=== PATIENT | female | born 1965 | race Caucasian/White ===

== ENCOUNTER → 2016-04-15 | Outpatient (CLI) | payer OTHER ==
[~2016-04-15] MED LIST: /CELE20CA OR; /CELE20CA PO; /QUET25TA OR; CALCCHW12 PO; CALCTAB22 PO; COLA100C PO; CRANCAP11 PO; GLUC500T3 PO; LYRI100C10 PO; MIRA3350 PO; MOBI15TA PO; MYRB50TA PO; NEUR100C OR; NIFE30TA7 PO; PLAQ200T PO; PROZ10CA7 PO; TERB250T64 PO; TRAM50TA2 OR; TRAZ50TA OR; TRAZ50TA4 PO; VITAD1000T PO; [UNRECOGNIZED DRUG - REMARK]; combination cream TOP; melatonin PO; tylenol arthritis PO
--- NOTE | 2016-04-16 00:57 | ECWPNPC ---
PATIENT NAME: HAO MARROQUIN : 1965 GENDER: FEMALE VISIT DATE: 04/15/2016 DISCHARGE DATE: 04/15/16 0945 VISIT LOCKED DATE TIME: PHYSICIAN: YANG HILL RESOURCE: YANG HILL REASON FOR APPOINTMENT 1. FOLLOWUP HISTORY OF PRESENT ILLNESS HISTORY OF PRESENT ILLNESS: PAIN THE PATIENT DESCRIBES THE PAIN... FALL RISK SCREENING: SCREENING :NO FALLS IN THE PAST YEAR TODAY'S VISIT: NOTES: RATES PAIN 4/10. DESCRIBES PAIN CONSTANT, BURNING, TENDER, THROBBING, SORE. WORST AREA OF PAIN IN LEFT LOW BACK AND BUTTUCK REGION. JOINTS INCLUDING HANDS HAVE ALSO BEEN PROBLEMATIC. USES MULTIPLE MODALITIES AND ALTERNATES THEM TO KEEP PAIN MANAGED. . CURRENT MEDICATIONS TAKING CELEBREX 200 MG CAPSULE 1 CAPSULE ORALLY ONCE A DAY TAKING PLAQUENIL 300 MG TABLET 1 TABLET WITH FOOD OR MILK ORALLY ONCE A DAY TAKING VITAMIN D 2000 UNIT TABLET 1TAB ORALLY DAILY TAKING CALCIUM 500 MG TABLET 1 TAB ORALLY DAILY TAKING CATHETERS 14 F KIT 1 CATHETER 6 TIMES A DAY TAKING CRANBERRY 300 MG CAPSULE 1 CAP(S) ORALLY BID TAKING NIFEDIPINE 30 MG CAPSULE 1 CAPSULE ORALLY ONCE A DAY TAKING PROZAC 10 MG CAPSULE 1 CAP ORALLY BEFORE BEDTIME TAKING CYANOCOBALAMIN 500 MCG TABLET 1 TABLET ORALLY ONCE A DAY TAKING CRESTOR 5 MG TABLET 1 TABLET ORALLY ONCE A DAY TAKING MIRALAX 1500 POWDER DIRECTED ORALLY TAKE 17 GM DAILY IN 8 OZ FLUID TAKING COLACE 100 MG CAPSULE 2 CAPSULE NEEDED ORALLY TWICE A DAY TAKING VOLTAREN 1 % GEL DIRECTED TRANSDERMAL FOUR TIMES DAILY APPLY TO SACRUM PRN PAIN TAKING TRAMADOL HCL 50 MG TABLET 2 TABLETS ORALLY MDD=8 EVERY 4 HOURS NEEDED PRN PAIN MDD=8CHRONIC PAIN CODE D TAKING MYRBETRIQ 50MG TABLET EXTENDED RELEASE 24 HOUR TAKE 1 TABLET ONCE A DAY TAKING LYRICA 150 MG CAPSULE 1 CAPSULE ORALLY TWICE A DAY MDD=2 CODE D CHRONIC PAIN MEDICATION LIST REVIEWED AND RECONCILED WITH THE PATIENT PAST MEDICAL HISTORY SLEEP APNEA SJOGREN'S SYNDROME HISTORY OF CONCUSSION CARPAL TUNNEL SYNDROME CHRONIC PAIN MODERATE CERVICAL DYSPLASIA ARTHRITIS HISTORY OF TBI PTSD 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 NEW PATIENT PAIN DIARY TODAY'S VISITNOTES FROM 0-10, WHAT LEVEL IS YOUR PAIN TODAY?0 PAIN CLINIC PFS, CLERGY, PUBLIC HEALTH REFERRALS PFS REFERRAL NEEDED?NO CLERGY REFERRAL NEEDED?NO PUBLIC HEALTH REFERRAL NEEDED?NO WAS THE PROVIDER NOTIFIED OF ANY PERTINENT INFO?NO PFS REFERRAL NEEDED?NO CLERGY REFERRAL NEEDED?NO PUBLIC HEALTH REFERRAL NEEDED?NO WAS THE PROVIDER NOTIFIED OF ANY PERTINENT INFO?NO REVIEW OF SYSTEMS CONSTITUTIONAL: ANY CHANGE IN YOUR MEDICAL CONDITION? NO . CHILLS NO . FEVER NO . INFECTION: DO YOU HAVE NEW INFECTIONS? NO . DO YOU HAVE HISTORY OF MRSA? NO . MUSCULOSKELETAL: ANY NEW PATTERNS OF PAIN OR NUMBNESS? NO . GASTROENTEROLOGY: ANY NEW CHANGE IN BOWEL CONTROL? NO . GENITOURINARY: ANY NEW CHANGE IN BLADDER CONTROL? NO . IS THERE A CHANCE YOU COULD BE ? NO . HEMATOLOGY/LYMPH: DO YOU TAKE ANY BLOOD THINNERS? (FOR EXAMPLE- COUMADIN, PLAVIX, AGGRENOX, PLATEL, PRADAXA, OR XARELTO) NO . WHEN WAS YOUR LAST DOSE? DATE: TIME: . NEUROLOGY: HAVE YOU FALLEN IN THE PAST 6 MONTHS? NO . ANY NEW EXTREMITY NUMBNESS OR WEAKNESS? NO . CARDIOLOGY: DO YOU HAVE A PACEMAKER OR DEFIBRILLATOR? NO . RESPIRATORY: HAVE YOU BEEN SICK IN THE PAST WEEK? NO . FEVER NO . FLU LIKE SYMPTOMS? NO . COUGH NO . INTEGUMENTARY: DO YOU HAVE ANY RASHES OR OPEN SORES? NO . ALLERGIC/IMMUNO: ARE YOU ALLERGIC TO SHELLFISH OR IV DYE? NO . ANY NEW ALLERGIES? NO . PSYCHIATRIC: DO YOU HAVE THOUGHTS OF HURTING YOURSELF OR SOMEONE ELSE? NO . ARE YOU ABUSED, NEGLECTED, OR IN AN UNSAFE ENVIRONMENT? NO . ENDOCRINOLOGY: ARE YOU DIABETIC? NO . OTHER: DO YOU NEED ANY PRESCRIPTIONS? NOT SURE . IF YES, PLEASE LIST: ____ . ANY NEW PROBLEMS WITH YOUR MEDICATIONS? NO . WHEN DID YOU LAST EAT? ____ . WHEN DID YOU LAST DRINK? ____ . WHAT DID YOU LAST DRINK? ____ . NAME OF PERSON DRIVING YOU HOME? ____ . DO YOU HAVE ANY OTHER QUESTIONS OR CONCERNS NO . REVIEWED BY: PROVIDER: YANG MAZARIEGOS . VITAL SIGNS WT 136.2 LBS, HT 66", BMI 21.98 INDEX, BP 113/68 MM HG, HR 92 /MIN, RR 16 /MIN, TEMP 98.4 F, OXYGEN SAT % 96%, NA INITIALS SC08:47, REVIEWED BY: AD. EXAMINATION GENERAL EXAMINATION: PSYCHALERT , ORIENTED X 3 , APPROPRIATE MOOD AND AFFECT . LUNGS:CLEAR TO AUSCULTATION BILATERALLY. HEART:HEART RATE REGULAR, NO MURMURS, CLICK OR RUBS. MUSCULOSKELETAL:TENDER OVER SACRUM AND COCCYX. STANDS THROUGHOUT ENCOUNTER. POSTURE STIFF, UPRIGHT. GAIT NONANTALGIC.. JOINTS:ERYTHEMA,SWELLING NOTES OVER MIP, PIP AND DIP JOINTS 3RD FINGER LEFT HAND. 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 PROCEDURE CODES FA211 ESTABILISHED PATIENT [facility] CHARGE FOLLOW UP 6 WEEKS. ELECTRONICALLY SIGNED BY GADIEL JIMENEZ ON 04/15/2016 AT 10:11 AM EST DISCLAIMER : THIS IS A VISIT SUMMARY EXTRACTED FROM THE [employer] CHART. IT IS NOT A COPY OF THE [employer] PROGRESS NOTE. MTDD
== END ==
LOC: M PAIN 08:40
PROVIDERS: ATTEND Nurse Practitioner Family
DX: Z09 Encounter for follow-up examination after completed treatment for conditions other than malignant neoplasm (principal); G57.00 Lesion of sciatic nerve, unspecified lower limb; M51.26 Other intervertebral disc displacement, lumbar region; M79.1 Myalgia; Z79.891 Long term (current) use of opiate analgesic; Z79.899 Other long term (current) drug therapy; G47.30 Sleep apnea, unspecified; M35.00 Sjogren syndrome, unspecified; Z87.820 Personal history of traumatic brain injury; I73.00 Raynaud's syndrome without gangrene; F43.10 Post-traumatic stress disorder, unspecified; Z91.040 Latex allergy status; Z88.1 Allergy status to other antibiotic agents; Z88.0 Allergy status to penicillin

== ENCOUNTER → 2016-05-16 | Outpatient (CLI) | payer OTHER ==
[2016-05-16 17:20] LABS: MEAN CORPUSCULAR HEMOGLOBIN 31.6 pg (27.0-33.0); MEAN CORPUSCULAR HGB CONC 33.1 g/dl (32.0-36.5); MEAN CORPUSCULAR VOLUME 95.4 fl (80.0-96.0); RED CELL DISTRIBUTION WIDTH 12.1 % (11.5-14.5); WHITE BLOOD COUNT 5.7 K/mm3 (4.0-10.0)
[2016-05-16 17:32] LABS: ANION GAP 4 MEQ/L (8-16); BLOOD UREA NITROGEN 11 MG/DL (7-18); CARBON DIOXIDE LEVEL 33 MEQ/L (21-32); CHLORIDE LEVEL 103 MEQ/L (98-107); GLOMERULAR FILTRATION RATE > 60.0 (>51); GLUCOSE, FASTING 54 MG/DL (70-105); POTASSIUM SERUM 4.3 MEQ/L (3.5-5.1); SODIUM LEVEL 140 MEQ/L (136-145)
== END ==
LOC: M SMT 14:30
PROVIDERS: ATTEND Nurse Practitioner Women's Health
DX: N31.9 Neuromuscular dysfunction of bladder, unspecified (principal)
CPT/HCPCS: 36415; 80048; 85027; G0463

== ENCOUNTER → 2016-06-02 | Outpatient (CLI) | payer OTHER ==
--- NOTE | 2016-06-03 23:54 | ECWPNPC ---
PATIENT NAME: HAO MARROQUIN : 1965 GENDER: FEMALE VISIT DATE: 06/02/2016 DISCHARGE DATE: 06/02/16 1053 VISIT LOCKED DATE TIME: PHYSICIAN: YANG HILL RESOURCE: YANG HILL REASON FOR APPOINTMENT 1. FOLLOW UP HISTORY OF PRESENT ILLNESS HISTORY OF PRESENT ILLNESS: PAIN THE PATIENT DESCRIBES THE PAIN... FALL RISK SCREENING: SCREENING :NO FALLS IN THE PAST YEAR TODAY'S VISIT: NOTES: RATES PAIN TODAY 4/10. DESCRIBES PAIN CONSTANT AND BURNING. IS HAVING A SENSE OF NUMBNESS OVER LEFT HIP AND THIGH. HAS A HARD TIME FINDING A COMFORTABLE POSITION. HAS BEEN USING A TENS AND A OTC CREAM WHICH CAN BE HELPFUL.. CURRENT MEDICATIONS TAKING CELEBREX 200 MG CAPSULE 1 CAPSULE ORALLY ONCE A DAY TAKING PLAQUENIL 300 MG TABLET 1 TABLET WITH FOOD OR MILK ORALLY ONCE A DAY TAKING VITAMIN D 2000 UNIT TABLET 1TAB ORALLY DAILY TAKING CALCIUM 500 MG TABLET 1 TAB ORALLY DAILY TAKING CATHETERS 14 F KIT 1 CATHETER 6 TIMES A DAY TAKING CRANBERRY 300 MG CAPSULE 1 CAP(S) ORALLY BID TAKING NIFEDIPINE 30 MG CAPSULE 1 CAPSULE ORALLY ONCE A DAY TAKING PROZAC 10 MG CAPSULE 1 CAP ORALLY BEFORE BEDTIME TAKING CYANOCOBALAMIN 500 MCG TABLET 1 TABLET ORALLY ONCE A DAY TAKING CRESTOR 5 MG TABLET 1 TABLET ORALLY ONCE A DAY TAKING MIRALAX 1500 POWDER DIRECTED ORALLY TAKE 17 GM DAILY IN 8 OZ FLUID TAKING COLACE 100 MG CAPSULE 2 CAPSULE NEEDED ORALLY TWICE A DAY TAKING VOLTAREN 1 % GEL DIRECTED TRANSDERMAL FOUR TIMES DAILY APPLY TO SACRUM PRN PAIN TAKING TRAMADOL HCL 50 MG TABLET 2 TABLETS ORALLY MDD=8 EVERY 4 HOURS NEEDED PRN PAIN MDD=8CHRONIC PAIN CODE D TAKING LYRICA 150 MG CAPSULE 1 CAPSULE ORALLY TWICE A DAY MDD=2 CODE D CHRONIC PAIN TAKING MYRBETRIQ 50MG TABLET EXTENDED RELEASE 24 HOUR TAKE 1 TABLET ONCE A DAY DAILY MEDICATION LIST REVIEWED AND RECONCILED WITH THE PATIENT PAST MEDICAL HISTORY SLEEP APNEA SJOGREN'S SYNDROME HISTORY OF CONCUSSION CARPAL TUNNEL SYNDROME CHRONIC PAIN MODERATE CERVICAL DYSPLASIA ARTHRITIS HISTORY OF TBI PTSD 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 NEW PATIENT PAIN DIARY TODAY'S VISITNOTES FROM 0-10, WHAT LEVEL IS YOUR PAIN TODAY?0 PAIN CLINIC PFS, CLERGY, PUBLIC HEALTH REFERRALS PFS REFERRAL NEEDED?NO CLERGY REFERRAL NEEDED?NO PUBLIC HEALTH REFERRAL NEEDED?NO WAS THE PROVIDER NOTIFIED OF ANY PERTINENT INFO?NO PFS REFERRAL NEEDED?NO CLERGY REFERRAL NEEDED?NO PUBLIC HEALTH REFERRAL NEEDED?NO WAS THE PROVIDER NOTIFIED OF ANY PERTINENT INFO?NO REVIEW OF SYSTEMS CONSTITUTIONAL: ANY CHANGE IN YOUR MEDICAL CONDITION? NO . CHILLS NO . FEVER NO . INFECTION: DO YOU HAVE NEW INFECTIONS? NO . DO YOU HAVE HISTORY OF MRSA? NO . MUSCULOSKELETAL: ANY NEW PATTERNS OF PAIN OR NUMBNESS? NO . GASTROENTEROLOGY: ANY NEW CHANGE IN BOWEL CONTROL? NO . GENITOURINARY: ANY NEW CHANGE IN BLADDER CONTROL? NO . IS THERE A CHANCE YOU COULD BE ? NO . HEMATOLOGY/LYMPH: DO YOU TAKE ANY BLOOD THINNERS? (FOR EXAMPLE- COUMADIN, PLAVIX, AGGRENOX, PLATEL, PRADAXA, OR XARELTO) NO . WHEN WAS YOUR LAST DOSE? DATE: TIME: . NEUROLOGY: HAVE YOU FALLEN IN THE PAST 6 MONTHS? NO . ANY NEW EXTREMITY NUMBNESS OR WEAKNESS? NO . CARDIOLOGY: DO YOU HAVE A PACEMAKER OR DEFIBRILLATOR? NO . RESPIRATORY: HAVE YOU BEEN SICK IN THE PAST WEEK? NO . FEVER NO . FLU LIKE SYMPTOMS? NO . COUGH NO . INTEGUMENTARY: DO YOU HAVE ANY RASHES OR OPEN SORES? NO . ALLERGIC/IMMUNO: ARE YOU ALLERGIC TO SHELLFISH OR IV DYE? NO . ANY NEW ALLERGIES? NO . PSYCHIATRIC: DO YOU HAVE THOUGHTS OF HURTING YOURSELF OR SOMEONE ELSE? NO . ARE YOU ABUSED, NEGLECTED, OR IN AN UNSAFE ENVIRONMENT? NO . ENDOCRINOLOGY: ARE YOU DIABETIC? NO . OTHER: DO YOU NEED ANY PRESCRIPTIONS? NO . IF YES, PLEASE LIST: ____ . ANY NEW PROBLEMS WITH YOUR MEDICATIONS? NO . WHEN DID YOU LAST EAT? ____ . WHEN DID YOU LAST DRINK? ____ . WHAT DID YOU LAST DRINK? ____ . NAME OF PERSON DRIVING YOU HOME? ____ . DO YOU HAVE ANY OTHER QUESTIONS OR CONCERNS NO . REVIEWED BY: PROVIDER: YANG MAZARIEGOS . VITAL SIGNS WT 141.8 LBS, HT 66", BMI 22.88 INDEX, BP 96/67 MM HG, HR 78 /MIN, RR 16 /MIN, TEMP 98.6 F, OXYGEN SAT % 98%, NA INITIALS SC 10:06, REVIEWED BY: MLF. EXAMINATION GENERAL EXAMINATION: PSYCHALERT , ORIENTED X 3 , APPROPRIATE MOOD AND AFFECT . LUNGS:CLEAR TO AUSCULTATION BILATERALLY. HEART:HEART RATE REGULAR, NO MURMURS, CLICK OR RUBS. MUSCULOSKELETAL:TENDER OVER SACRUM AND COCCYX AND LEFT PIRIFORMIS. STANDS THROUGHOUT ENCOUNTER. POSTURE STIFF, UPRIGHT. GAIT NONANTALGIC.. 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 CONTINUE TENS, EXERCISES AND STRETCHES, AND OTC CREAMS CALL IF INJECTION TREATMENT NEEDED. PROCEDURE CODES FA211 ESTABILISHED PATIENT [facility] CHARGE DISPOSITION & COMMUNICATION FOLLOW UP 6 WEEKS ELECTRONICALLY SIGNED BY GADIEL JIMENEZ ON 06/03/2016 AT 01:00 PM EDT DISCLAIMER : THIS IS A VISIT SUMMARY EXTRACTED FROM THE [employer] CHART. IT IS NOT A COPY OF THE [employer] PROGRESS NOTE. DEISY
== END ==
LOC: M PAIN 10:20
PROVIDERS: ATTEND Nurse Practitioner Family
DX: Z09 Encounter for follow-up examination after completed treatment for conditions other than malignant neoplasm (principal); G89.29 Other chronic pain; M79.1 Myalgia; G57.00 Lesion of sciatic nerve, unspecified lower limb; M51.26 Other intervertebral disc displacement, lumbar region; G47.00 Insomnia, unspecified; G56.00 Carpal tunnel syndrome, unspecified upper limb; I73.00 Raynaud's syndrome without gangrene; M35.00 Sjogren syndrome, unspecified; F43.10 Post-traumatic stress disorder, unspecified; M19.90 Unspecified osteoarthritis, unspecified site; N31.9 Neuromuscular dysfunction of bladder, unspecified; Z79.899 Other long term (current) drug therapy; Z91.040 Latex allergy status; Z88.0 Allergy status to penicillin; Z88.1 Allergy status to other antibiotic agents

== ENCOUNTER → 2016-07-14 | Outpatient (CLI) | payer OTHER ==
[~2016-07-14] MED LIST changes: -COLA100C PO; +COLA100C3 PO
--- NOTE | 2016-08-07 02:26 | ECWPNPC ---
PATIENT NAME: HAO MARROQUIN : 1965 GENDER: FEMALE VISIT DATE: 07/14/2016 DISCHARGE DATE: 07/14/16939 VISIT LOCKED DATE TIME: PHYSICIAN: YANG HILL RESOURCE: YANG HILL REASON FOR APPOINTMENT 1. FOLLOWUP HISTORY OF PRESENT ILLNESS HISTORY OF PRESENT ILLNESS: PAIN THE PATIENT DESCRIBES THE PAIN... FALL RISK SCREENING: SCREENING :NO FALLS IN THE PAST YEAR TODAY'S VISIT: NOTES: RATES PAIN LEVEL TODAY 4/10. DESCRIBES PAIN CONSTANT, ACHING, BURNING TENDER, THROBBING AND SORE. PAIN IS CENTERED OVER LOW BACK AND LEFT SACRUM, SHOULDERS AND JOINTS. REPORTS PAIN MEDS ARE EFFECTIVE BUT IS CONCERNED WITH THE FUTURE IF THEY CEASE TO BE EFFECTIVE.. CURRENT MEDICATIONS TAKING CELEBREX 200 MG CAPSULE 1 CAPSULE ORALLY ONCE A DAY TAKING PLAQUENIL 300 MG TABLET 1 TABLET WITH FOOD OR MILK ORALLY ONCE A DAY TAKING VITAMIN D 2000 UNIT TABLET 1TAB ORALLY DAILY TAKING CALCIUM 500 MG TABLET 1 TAB ORALLY DAILY TAKING CATHETERS 14 F KIT 1 CATHETER 6 TIMES A DAY TAKING CRANBERRY 300 MG CAPSULE 1 CAP(S) ORALLY BID TAKING NIFEDIPINE 30 MG CAPSULE 1 CAPSULE ORALLY ONCE A DAY TAKING PROZAC 10 MG CAPSULE 1 CAP ORALLY BEFORE BEDTIME TAKING CYANOCOBALAMIN 500 MCG TABLET 1 TABLET ORALLY ONCE A DAY TAKING CRESTOR 5 MG TABLET 1 TABLET ORALLY ONCE A DAY TAKING MIRALAX 1500 POWDER DIRECTED ORALLY TAKE 17 GM DAILY IN 8 OZ FLUID TAKING COLACE 100 MG CAPSULE 2 CAPSULE NEEDED ORALLY TWICE A DAY TAKING VOLTAREN 1 % GEL DIRECTED TRANSDERMAL FOUR TIMES DAILY APPLY TO SACRUM PRN PAIN TAKING TRAMADOL HCL 50 MG TABLET 2 TABLETS ORALLY MDD=8 EVERY 4 HOURS NEEDED PRN PAIN MDD=8CHRONIC PAIN CODE D TAKING LYRICA 150 MG CAPSULE 1 CAPSULE ORALLY TWICE A DAY MDD=2 CODE D CHRONIC PAIN TAKING MYRBETRIQ 50MG TABLET EXTENDED RELEASE 24 HOUR TAKE 1 TABLET ONCE A DAY DAILY MEDICATION LIST REVIEWED AND RECONCILED WITH THE PATIENT PAST MEDICAL HISTORY SLEEP APNEA SJOGREN'S SYNDROME HISTORY OF CONCUSSION CARPAL TUNNEL SYNDROME CHRONIC PAIN MODERATE CERVICAL DYSPLASIA ARTHRITIS HISTORY OF TBI PTSD 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 NO . CHILLS NO . FEVER NO . INFECTION: DO YOU HAVE NEW INFECTIONS? NO . DO YOU HAVE HISTORY OF MRSA? NO . MUSCULOSKELETAL: ANY NEW PATTERNS OF PAIN OR NUMBNESS? NO . GASTROENTEROLOGY: ANY NEW CHANGE IN BOWEL CONTROL? NO . GENITOURINARY: ANY NEW CHANGE IN BLADDER CONTROL? NO . IS THERE A CHANCE YOU COULD BE ? NO . HEMATOLOGY/LYMPH: DO YOU TAKE ANY BLOOD THINNERS? (FOR EXAMPLE- COUMADIN, PLAVIX, AGGRENOX, PLATEL, PRADAXA, OR XARELTO) NO . WHEN WAS YOUR LAST DOSE? DATE: TIME: . NEUROLOGY: HAVE YOU FALLEN IN THE PAST 6 MONTHS? NO . ANY NEW EXTREMITY NUMBNESS OR WEAKNESS? NO . CARDIOLOGY: DO YOU HAVE A PACEMAKER OR DEFIBRILLATOR? NO . RESPIRATORY: HAVE YOU BEEN SICK IN THE PAST WEEK? NO . FEVER NO . FLU LIKE SYMPTOMS? NO . COUGH NO . INTEGUMENTARY: DO YOU HAVE ANY RASHES OR OPEN SORES? NO . ALLERGIC/IMMUNO: ARE YOU ALLERGIC TO SHELLFISH OR IV DYE? NO . ANY NEW ALLERGIES? NO . PSYCHIATRIC: DO YOU HAVE THOUGHTS OF HURTING YOURSELF OR SOMEONE ELSE? NO . ARE YOU ABUSED, NEGLECTED, OR IN AN UNSAFE ENVIRONMENT? NO . ENDOCRINOLOGY: ARE YOU DIABETIC? NO . OTHER: DO YOU NEED ANY PRESCRIPTIONS? NO . IF YES, PLEASE LIST: ____ . ANY NEW PROBLEMS WITH YOUR MEDICATIONS? NO . WHEN DID YOU LAST EAT? ____ . WHEN DID YOU LAST DRINK? ____ . WHAT DID YOU LAST DRINK? ____ . NAME OF PERSON DRIVING YOU HOME? ____ . DO YOU HAVE ANY OTHER QUESTIONS OR CONCERNS NO . UROLOGY: GENERAL CONTINUES WITH SELF CATH AND FOLOWS WITH UROLOGY. . REVIEWED BY: PROVIDER: YANG MAZARIEGOS . VITAL SIGNS WT 143.6 LBS, HT 66", BMI 23.18 INDEX, BP 125/55 MM HG, HR 85 /MIN, RR 16 /MIN, TEMP 98.8 F, OXYGEN SAT % 96%, NA INITIALS AW 0908, REVIEWED BY: VD. EXAMINATION GENERAL EXAMINATION: PSYCHALERT , ORIENTED X 3 , APPROPRIATE MOOD AND AFFECT . LUNGS:CLEAR TO AUSCULTATION BILATERALLY. HEART:HEART RATE REGULAR, NO MURMURS, CLICK OR RUBS. MUSCULOSKELETAL:TENDER OVER SACRUM AND COCCYX AND LEFT PIRIFORMIS. STANDS THROUGHOUT ENCOUNTER. POSTURE STIFF, UPRIGHT. GAIT NONANTALGIC.. 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 EXERCISE AND STRETCH TOLERATED. LOOK AT ACTUAL DIET, DO AFOOD DIARY. PROCEDURE CODES FA211 ESTABILISHED PATIENT [facility] CHARGE DISPOSITION & COMMUNICATION FOLLOW UP 6 WEEKS. (REASON: GENERAL AIN/PIRIFORMIS SYNDROME) ELECTRONICALLY SIGNED BY GADIEL JIMENEZ ON 08/05/2016 AT 05:53 PM EDT DISCLAIMER : THIS IS A VISIT SUMMARY EXTRACTED FROM THE [employer] CHART. IT IS NOT A COPY OF THE [employer] PROGRESS NOTE. MTDD
== END ==
LOC: M PAIN 08:40
PROVIDERS: ATTEND Nurse Practitioner Family
DX: G57.00 Lesion of sciatic nerve, unspecified lower limb (principal); M51.26 Other intervertebral disc displacement, lumbar region; N31.9 Neuromuscular dysfunction of bladder, unspecified; M79.1 Myalgia; Z79.891 Long term (current) use of opiate analgesic; Z79.899 Other long term (current) drug therapy; Z88.0 Allergy status to penicillin; Z91.040 Latex allergy status

== ENCOUNTER → 2016-08-25 | Outpatient (CLI) | payer OTHER ==
--- NOTE | 2016-08-26 02:25 | ECWPNPC ---
PATIENT NAME: HAO MARROQUIN : 1965 GENDER: FEMALE VISIT DATE: 08/25/2016 DISCHARGE DATE: 08/25/16 0943 VISIT LOCKED DATE TIME: PHYSICIAN: YANG HILL RESOURCE: YANG HILL REASON FOR APPOINTMENT 1. GENERAL AIN/PIRIFORMIS SYNDROME HISTORY OF PRESENT ILLNESS HISTORY OF PRESENT ILLNESS: PAIN THE PATIENT DESCRIBES THE PAIN... FALL RISK SCREENING: SCREENING :NO FALLS IN THE PAST YEAR TODAY'S VISIT: NOTES: RATES PAIN LEVEL TODAY 4/10. DESCRIBES PAIN CONSTANT, ACHING, BURNING, SHARP AND STABBING, TENDER, THROBBING AND SORE. PAIN IS CENTERED AT BASE OF NECK RADIATING TO RIGHT SHOULDER, SACRUM TO LEFT BUTTUCK, AND AT MOST JOINTS. HAS NOTED SOME SLEEP DIRUPTION IN SLEEP AND A LEFT TEMPORAL TENSION. HAS NOT BEEN CONSISTANTLY. . CURRENT MEDICATIONS TAKING CELEBREX 200 MG CAPSULE 1 CAPSULE ORALLY ONCE A DAY TAKING PLAQUENIL 300 MG TABLET 1 TABLET WITH FOOD OR MILK ORALLY ONCE A DAY TAKING VITAMIN D 2000 UNIT TABLET 1TAB ORALLY DAILY TAKING CALCIUM 500 MG TABLET 1 TAB ORALLY DAILY TAKING CATHETERS 14 F KIT 1 CATHETER 6 TIMES A DAY TAKING CRANBERRY 300 MG CAPSULE 1 CAP(S) ORALLY BID TAKING NIFEDIPINE 30 MG CAPSULE 1 CAPSULE ORALLY ONCE A DAY TAKING PROZAC 10 MG CAPSULE 1 CAP ORALLY BEFORE BEDTIME TAKING CYANOCOBALAMIN 500 MCG TABLET 1 TABLET ORALLY ONCE A DAY TAKING CRESTOR 5 MG TABLET 1 TABLET ORALLY ONCE A DAY TAKING MIRALAX 1500 POWDER DIRECTED ORALLY TAKE 17 GM DAILY IN 8 OZ FLUID TAKING COLACE 100 MG CAPSULE 2 CAPSULE NEEDED ORALLY TWICE A DAY TAKING VOLTAREN 1 % GEL DIRECTED TRANSDERMAL FOUR TIMES DAILY APPLY TO SACRUM PRN PAIN TAKING TRAMADOL HCL 50 MG TABLET 2 TABLETS ORALLY MDD=8 EVERY 4 HOURS NEEDED PRN PAIN MDD=8CHRONIC PAIN CODE D TAKING LYRICA 150 MG CAPSULE 1 CAPSULE ORALLY TWICE A DAY MDD=2 CODE D CHRONIC PAIN TAKING MYRBETRIQ 50MG TABLET EXTENDED RELEASE 24 HOUR TAKE 1 TABLET ONCE A DAY DAILY MEDICATION LIST REVIEWED AND RECONCILED WITH THE PATIENT PAST MEDICAL HISTORY SLEEP APNEA SJOGREN'S SYNDROME HISTORY OF CONCUSSION CARPAL TUNNEL SYNDROME CHRONIC PAIN MODERATE CERVICAL DYSPLASIA ARTHRITIS HISTORY OF TBI PTSD 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 NO . CHILLS NO . FEVER NO . INFECTION: DO YOU HAVE NEW INFECTIONS? NO . DO YOU HAVE HISTORY OF MRSA? NO . MUSCULOSKELETAL: ANY NEW PATTERNS OF PAIN OR NUMBNESS? NO . GASTROENTEROLOGY: ANY NEW CHANGE IN BOWEL CONTROL? NO . GENITOURINARY: ANY NEW CHANGE IN BLADDER CONTROL? NO . IS THERE A CHANCE YOU COULD BE ? NO . HEMATOLOGY/LYMPH: DO YOU TAKE ANY BLOOD THINNERS? (FOR EXAMPLE- COUMADIN, PLAVIX, AGGRENOX, PLATEL, PRADAXA, OR XARELTO) NO . WHEN WAS YOUR LAST DOSE? DATE: TIME: . NEUROLOGY: HAVE YOU FALLEN IN THE PAST 6 MONTHS? NO . ANY NEW EXTREMITY NUMBNESS OR WEAKNESS? NO . CARDIOLOGY: DO YOU HAVE A PACEMAKER OR DEFIBRILLATOR? NO . RESPIRATORY: HAVE YOU BEEN SICK IN THE PAST WEEK? NO . FEVER NO . FLU LIKE SYMPTOMS? NO . COUGH NO . INTEGUMENTARY: DO YOU HAVE ANY RASHES OR OPEN SORES? NO . ALLERGIC/IMMUNO: ARE YOU ALLERGIC TO SHELLFISH OR IV DYE? NO . ANY NEW ALLERGIES? NO . PSYCHIATRIC: DO YOU HAVE THOUGHTS OF HURTING YOURSELF OR SOMEONE ELSE? NO . ARE YOU ABUSED, NEGLECTED, OR IN AN UNSAFE ENVIRONMENT? NO . ENDOCRINOLOGY: ARE YOU DIABETIC? NO . OTHER: DO YOU NEED ANY PRESCRIPTIONS? YES . IF YES, PLEASE LIST: ____TRAMADOL, LYRICA . ANY NEW PROBLEMS WITH YOUR MEDICATIONS? NO . WHEN DID YOU LAST EAT? ____ . WHEN DID YOU LAST DRINK? ____ . WHAT DID YOU LAST DRINK? ____ . NAME OF PERSON DRIVING YOU HOME? ____ . DO YOU HAVE ANY OTHER QUESTIONS OR CONCERNS NO . REVIEWED BY: PROVIDER: YANG HANDYP . VITAL SIGNS WT 142.8 LBS, HT 66", BMI 23.05 INDEX, BP 92/56 MM HG, HR 71 /MIN, RR 16 /MIN, TEMP 97.6 F, OXYGEN SAT % 97%, SAFE IN ENV? (Y/N) YES, NA INITIALS SC 08:55, REVIEWED BY: OLE. EXAMINATION GENERAL EXAMINATION: PSYCHALERT , ORIENTED X 3 , APPROPRIATE MOOD AND AFFECT . LUNGS:CLEAR TO AUSCULTATION BILATERALLY. HEART:HEART RATE REGULAR, NO MURMURS, CLICK OR RUBS. MUSCULOSKELETAL:TENDER OVER SACRUM AND COCCYX AND LEFT PIRIFORMIS. STANDS THROUGHOUT ENCOUNTER. POSTURE STIFF, UPRIGHT. TRIGGER POINTS AND TIGHT FIBROUS BANDS IDENTIFIED OVER CERVICAL PARASPINOUS MUSCLES AND ACROSS BILATERAL TRAPEZIUS. GAIT NONANTALGIC.. 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 USE TENNIS BALL TO APPLY PRESSURE TO TRIGGER POINT AREAS. CLINICAL NOTES: ISTOP REGISTRY REVIEWED AND DEMNOSTRATES COMPLLIANCE. BRINGS IN MEDICATIONS WHICH IS APPROPRIATE FOR WHAT WAS DISPENSED. RECENT URINE TOXICOLOGY REVIEWED. NO UNAUTHORIZED MEDICATIONS. NO ILLICIT SUBSTANCES AND PRESCRIBED MEDICATIONS WERE PRESENT. PROCEDURE CODES FA211 ESTABILISHED PATIENT [facility] CHARGE DISPOSITION & COMMUNICATION FOLLOW UP 6 WEEKS (REASON: JOINT PAIN) ELECTRONICALLY SIGNED BY GADIEL JIMENEZ ON 08/25/2016 AT 11:13 AM EDT DISCLAIMER : THIS IS A VISIT SUMMARY EXTRACTED FROM THE [email or web address] CHART. IT IS NOT A COPY OF THE [email or web address] PROGRESS NOTE. DEISY
== END ==
LOC: M PAIN 09:00
PROVIDERS: ATTEND Nurse Practitioner Family
DX: G57.00 Lesion of sciatic nerve, unspecified lower limb (principal); M51.26 Other intervertebral disc displacement, lumbar region; M79.1 Myalgia; Z79.899 Other long term (current) drug therapy; Z79.891 Long term (current) use of opiate analgesic; Z88.0 Allergy status to penicillin; Z91.040 Latex allergy status

== ENCOUNTER → 2016-08-30 | Outpatient (REF) | payer OTHER | LOC: M LAB REF 20:32 | PROVIDERS: ATTEND Physician Assistant Medical | DX: R39.89 Other symptoms and signs involving the genitourinary system (principal) ==

== ENCOUNTER → 2016-09-21 | Outpatient (REF) | payer OTHER ==
[~2016-09-21] MED LIST changes: -COLA100C3 PO; +COLA100C5 PO; -LYRI100C10 PO; +PREG100CA PO; +TRAZ50TA11 PO; -TRAZ50TA4 PO
== END ==
LOC: M LAB REF 09:27
PROVIDERS: ATTEND Physician Assistant
DX: N39.0 Urinary tract infection, site not specified (principal)

== ENCOUNTER → 2016-10-28 | Outpatient (REF) | payer OTHER | LOC: M SMT 17:11 | PROVIDERS: ATTEND Nurse Practitioner Women's Health | DX: N39.0 Urinary tract infection, site not specified (principal) ==

== ENCOUNTER → 2016-11-07 | Outpatient (CLI) | payer OTHER ==
--- NOTE | 2016-11-16 23:37 | ECWPNPC ---
PATIENT NAME: HAO MARROQUIN : 1965 GENDER: FEMALE VISIT DATE: 11/07/2016 DISCHARGE DATE: 11/07/16916 VISIT LOCKED DATE TIME: PHYSICIAN: YANG HILL RESOURCE: YANG HILL REASON FOR APPOINTMENT 1. JOINT PAIN HISTORY OF PRESENT ILLNESS HISTORY OF PRESENT ILLNESS: PAIN THE PATIENT DESCRIBES THE PAIN... FALL RISK SCREENING: SCREENING :NO FALLS IN THE PAST YEAR TODAY'S VISIT: NOTES: RATES PAIN TODAY 4/10. DESCRIBES PAINA S CONSTANT, ACHING, BURNING AND THROBBING. NOTES PAIN IS CENTERED AT THE JOINTS INCLUDING THE NECK, SHOULDERS, KNEES AND ANKLES AND WRISTS. CONTINUES TO HAVE LOW BACK PAIN WITH RADIATION TO LEFT BUTTUCK. IS HAVING PAINFUL NUMBNESS AND BURNING OVER LATERAL THIGH. NOTES MEDS ARE HELPFUL . CURRENT MEDICATIONS TAKING CELEBREX 200 MG CAPSULE 1 CAPSULE ORALLY ONCE A DAY TAKING PLAQUENIL 300 MG TABLET 1 TABLET WITH FOOD OR MILK ORALLY ONCE A DAY TAKING VITAMIN D 2000 UNIT TABLET 1TAB ORALLY DAILY TAKING CALCIUM 500 MG TABLET 1 TAB ORALLY DAILY TAKING CATHETERS 14 F KIT 1 CATHETER 6 TIMES A DAY TAKING CRANBERRY 300 MG CAPSULE 1 CAP(S) ORALLY BID TAKING NIFEDIPINE 30 MG CAPSULE 1 CAPSULE ORALLY ONCE A DAY TAKING PROZAC 10 MG CAPSULE 1 CAP ORALLY BEFORE BEDTIME TAKING CYANOCOBALAMIN 500 MCG TABLET 1 TABLET ORALLY ONCE A DAY TAKING CRESTOR 5 MG TABLET 1 TABLET ORALLY ONCE A DAY TAKING MIRALAX 1500 POWDER DIRECTED ORALLY TAKE 17 GM DAILY IN 8 OZ FLUID TAKING COLACE 100 MG CAPSULE 2 CAPSULE NEEDED ORALLY TWICE A DAY TAKING VOLTAREN 1 % GEL DIRECTED TRANSDERMAL FOUR TIMES DAILY APPLY TO SACRUM PRN PAIN TAKING LYRICA 150 MG CAPSULE 1 CAPSULE ORALLY TWICE A DAY MDD=2 CODE D CHRONIC PAIN TAKING MYRBETRIQ 50MG TABLET EXTENDED RELEASE 24 HOUR TAKE 1 TABLET ONCE A DAY DAILY TAKING TRAMADOL HCL 50 MG TABLET 2 TABLETS ORALLY MDD=8 EVERY 4 HOURS NEEDED PRN PAIN MDD=8CHRONIC PAIN CODE D MEDICATION LIST REVIEWED AND RECONCILED WITH THE PATIENT PAST MEDICAL HISTORY SLEEP APNEA SJOGREN'S SYNDROME HISTORY OF CONCUSSION CARPAL TUNNEL SYNDROME CHRONIC PAIN MODERATE CERVICAL DYSPLASIA ARTHRITIS HISTORY OF TBI PTSD RIGHT OVARIAN CYST SCIATICA RAYNAUDS SYNDROME NEUROGENIC BLADDER FRONTAL LOBE HEMANGIOMA ALLERGIES LATEX (FOR ALLERGY USE ONLY): RASH: ALLERGY ZITHROMAX: RASH: ALLERGY PENICILLIN (FOR ALLERGIES USE ONLY): UNKNOWN: ALLERGY ERYTHROMYCIN: CHEST TIGHTNESS: ALLERGY SURGICAL HISTORY RIGHT BREAST LUMPECTOMY 2009 TUBAL LIGATION 2006 VEIN STRIPPING BOTH LEGS 2002 RIGHT BREAST CYST REMOVAL 07/2013 RIGHT BREAST 3 CYSTS ASPERATED 01/2014 HOSPITALIZATION/MAJOR DIAGNOSTIC PROCEDURE SURGERY RELATED & CHILDBIRTH X2 REVIEW OF SYSTEMS REVIEWED BY: PROVIDER: YANG MAZARIEGOS . CONSTITUTIONAL: ANY CHANGE IN YOUR MEDICAL CONDITION? NO . CHILLS NO . FEVER NO . INFECTION: DO YOU HAVE NEW INFECTIONS? NO . DO YOU HAVE HISTORY OF MRSA? NO . MUSCULOSKELETAL: ANY NEW PATTERNS OF PAIN OR NUMBNESS? NO . GASTROENTEROLOGY: ANY NEW CHANGE IN BOWEL CONTROL? NO . GENITOURINARY: ANY NEW CHANGE IN BLADDER CONTROL? NO . IS THERE A CHANCE YOU COULD BE ? NO . HEMATOLOGY/LYMPH: DO YOU TAKE ANY BLOOD THINNERS? (FOR EXAMPLE- COUMADIN, PLAVIX, AGGRENOX, PLATEL, PRADAXA, OR XARELTO) NO . WHEN WAS YOUR LAST DOSE? DATE: TIME: . NEUROLOGY: HAVE YOU FALLEN IN THE PAST 6 MONTHS? NO . ANY NEW EXTREMITY NUMBNESS OR WEAKNESS? NO . CARDIOLOGY: DO YOU HAVE A PACEMAKER OR DEFIBRILLATOR? NO . RESPIRATORY: HAVE YOU BEEN SICK IN THE PAST WEEK? NO . FEVER NO . FLU LIKE SYMPTOMS? NO . COUGH NO . INTEGUMENTARY: DO YOU HAVE ANY RASHES OR OPEN SORES? NO . ALLERGIC/IMMUNO: ARE YOU ALLERGIC TO SHELLFISH OR IV DYE? NO . ANY NEW ALLERGIES? NO . PSYCHIATRIC: DO YOU HAVE THOUGHTS OF HURTING YOURSELF OR SOMEONE ELSE? NO . ARE YOU ABUSED, NEGLECTED, OR IN AN UNSAFE ENVIRONMENT? NO . ENDOCRINOLOGY: ARE YOU DIABETIC? NO . OTHER: DO YOU NEED ANY PRESCRIPTIONS? NO . IF YES, PLEASE LIST: ____ . ANY NEW PROBLEMS WITH YOUR MEDICATIONS? NO . WHEN DID YOU LAST EAT? ____ . WHEN DID YOU LAST DRINK? ____ . WHAT DID YOU LAST DRINK? ____ . NAME OF PERSON DRIVING YOU HOME? ____ . DO YOU HAVE ANY OTHER QUESTIONS OR CONCERNS NO . FEMALE REPRODUCTIVE: HOT FLASHES MENOPAUSE - HOT FLASHES MOSTLY RESOLVED . UROLOGY: RECURRENT URINARY TRACT INFECTION (UTI) TIMES 2 THIS YEAR. STILL STRAIGHT VCATHING FOR BLADDER CONTROL . VITAL SIGNS WT 138 LBS, HT 66", BMI 22.27 INDEX, BP 100/61 MM HG, HR 79 /MIN, RR 16 /MIN, TEMP 98.1 F, OXYGEN SAT % 97%, NA INITIALS AW 0832, REVIEWED BY: EM. EXAMINATION GENERAL EXAMINATION: PSYCHALERT , ORIENTED X 3 , APPROPRIATE MOOD AND AFFECT . LUNGS:CLEAR TO AUSCULTATION BILATERALLY. HEART:HEART RATE REGULAR, NO MURMURS, CLICK OR RUBS. MUSCULOSKELETAL:TENDER OVER SACRUM AND COCCYX AND LEFT PIRIFORMIS. STANDS THROUGHOUT ENCOUNTER. POSTURE STIFF, UPRIGHT. TRIGGER POINTS AND TIGHT FIBROUS BANDS IDENTIFIED OVER CERVICAL PARASPINOUS MUSCLES AND ACROSS BILATERAL TRAPEZIUS. GAIT NONANTALGIC.. 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 USE TENS UNIT TO BURNING AREA ON THIGHS. ALSO TRY ICE, MASSAGE AND STRETCHING TO THIS AREA. CONTINUE CURRENT MEDS. CALL WHEN SCRIPTS DUE. PROCEDURE CODES FA211 ESTABILISHED PATIENT [facility] CHARGE DISPOSITION & COMMUNICATION FOLLOW UP 6 WEEKS (REASON: PIRIFORMIS/JOINT PAIN) ELECTRONICALLY SIGNED BY GADIEL JIMENEZ ON 11/16/2016 AT 04:47 PM EDT DISCLAIMER : THIS IS A VISIT SUMMARY EXTRACTED FROM THE [employer] CHART. IT IS NOT A COPY OF THE [employer] PROGRESS NOTE. DEISY
== END ==
LOC: M PAIN 08:30
PROVIDERS: ATTEND Nurse Practitioner Family
DX: G57.00 Lesion of sciatic nerve, unspecified lower limb (principal); M51.26 Other intervertebral disc displacement, lumbar region; M79.1 Myalgia; M25.50 Pain in unspecified joint; G47.30 Sleep apnea, unspecified; M19.90 Unspecified osteoarthritis, unspecified site; M46.08 Spinal enthesopathy, sacral and sacrococcygeal region; Z79.891 Long term (current) use of opiate analgesic; Z79.899 Other long term (current) drug therapy; Z91.040 Latex allergy status; Z88.0 Allergy status to penicillin; Z88.1 Allergy status to other antibiotic agents

== ENCOUNTER → 2017-01-09 | Outpatient (CLI) | payer OTHER ==
--- NOTE | 2017-02-09 00:51 | ECWPNPC ---
PATIENT NAME: HAO MARROQUIN : 1965 GENDER: FEMALE VISIT DATE: 01/09/2017 DISCHARGE DATE: 01/09/17 1014 VISIT LOCKED DATE TIME: PHYSICIAN: YANG HILL RESOURCE: YANG HILL REASON FOR APPOINTMENT 1. JOINT PAIN HISTORY OF PRESENT ILLNESS HISTORY OF PRESENT ILLNESS: PAIN THE PATIENT DESCRIBES THE PAIN... FALL RISK SCREENING: SCREENING :NO FALLS IN THE PAST YEAR TODAY'S VISIT: NOTES: NOT A GOOD DAY WITH WEATHER CHANGE. JOINTS ARE UNCOMFORTABLE. RATES PAIN TODAY 4-5/10 DEPENDING ON THE JOINTS. . CURRENT MEDICATIONS TAKING CELEBREX 200 MG CAPSULE 1 CAPSULE ORALLY ONCE A DAY TAKING PLAQUENIL 300 MG TABLET 1 TABLET WITH FOOD OR MILK ORALLY ONCE A DAY TAKING VITAMIN D 2000 UNIT TABLET 1TAB ORALLY DAILY TAKING CALCIUM 500 MG TABLET 1 TAB ORALLY DAILY TAKING CRANBERRY 300 MG CAPSULE 1 CAP(S) ORALLY BID TAKING NIFEDIPINE 30 MG CAPSULE 1 CAPSULE ORALLY ONCE A DAY TAKING PROZAC 10 MG CAPSULE 1 CAP ORALLY BEFORE BEDTIME TAKING CYANOCOBALAMIN 500 MCG TABLET 1 TABLET ORALLY ONCE A DAY TAKING CRESTOR 5 MG TABLET 1 TABLET ORALLY ONCE A DAY TAKING MIRALAX 1500 POWDER DIRECTED ORALLY TAKE 17 GM DAILY IN 8 OZ FLUID TAKING COLACE 100 MG CAPSULE 2 CAPSULE NEEDED ORALLY TWICE A DAY TAKING VOLTAREN 1 % GEL DIRECTED TRANSDERMAL FOUR TIMES DAILY APPLY TO SACRUM PRN PAIN TAKING MYRBETRIQ 50MG TABLET EXTENDED RELEASE 24 HOUR TAKE 1 TABLET ONCE A DAY DAILY TAKING TRAMADOL HCL 50 MG TABLET 2 TABLETS ORALLY MDD=8 EVERY 4 HOURS NEEDED PRN PAIN MDD=8CHRONIC PAIN CODE D TAKING LYRICA 150 MG CAPSULE 1 CAPSULE ORALLY TWICE A DAY MDD=2 CODE D CHRONIC PAIN UNKNOWN CATHETERS 14 F KIT 1 CATHETER 6 TIMES A DAY MEDICATION LIST REVIEWED AND RECONCILED WITH THE PATIENT PAST MEDICAL HISTORY SLEEP APNEA SJOGREN'S SYNDROME HISTORY OF CONCUSSION CARPAL TUNNEL SYNDROME CHRONIC PAIN MODERATE CERVICAL DYSPLASIA ARTHRITIS HISTORY OF TBI PTSD 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 NEW PATIENT PAIN DIARY TODAY'S VISITNOTES FROM 0-10, WHAT LEVEL IS YOUR PAIN TODAY?0 PAIN CLINIC PFS, CLERGY, PUBLIC HEALTH REFERRALS PFS REFERRAL NEEDED?NO CLERGY REFERRAL NEEDED?NO PUBLIC HEALTH REFERRAL NEEDED?NO WAS THE PROVIDER NOTIFIED OF ANY PERTINENT INFO?NO HAS THE PATIENT BEEN EDUCATED REGARDING HIS/HER PLAN OF CARE?YES HAS THE PATIENT BEEN EDUCATED REGARDING PAIN, THE RISK FOR PAIN, THE IMPORTANCE OF EFFECTIVE PAIN MANAGEMENT, AND THE PAIN ASSESSMENT PROCESS?YES REVIEW OF SYSTEMS REVIEWED BY: PROVIDER: YANG MAZARIEGOS . CONSTITUTIONAL: ANY CHANGE IN YOUR MEDICAL CONDITION? NO . CHILLS NO . FEVER NO . INFECTION: DO YOU HAVE NEW INFECTIONS? NO . DO YOU HAVE HISTORY OF MRSA? NO . MUSCULOSKELETAL: ANY NEW PATTERNS OF PAIN OR NUMBNESS? NO . GASTROENTEROLOGY: ANY NEW CHANGE IN BOWEL CONTROL? NO . GENITOURINARY: ANY NEW CHANGE IN BLADDER CONTROL? NO . IS THERE A CHANCE YOU COULD BE ? NO . HEMATOLOGY/LYMPH: DO YOU TAKE ANY BLOOD THINNERS? (FOR EXAMPLE- COUMADIN, PLAVIX, AGGRENOX, PLATEL, PRADAXA, OR XARELTO) NO . WHEN WAS YOUR LAST DOSE? DATE: TIME: . NEUROLOGY: HAVE YOU FALLEN IN THE PAST 6 MONTHS? NO . ANY NEW EXTREMITY NUMBNESS OR WEAKNESS? NO . CARDIOLOGY: DO YOU HAVE A PACEMAKER OR DEFIBRILLATOR? NO . RESPIRATORY: HAVE YOU BEEN SICK IN THE PAST WEEK? NO . FEVER NO . FLU LIKE SYMPTOMS? NO . COUGH NO . INTEGUMENTARY: DO YOU HAVE ANY RASHES OR OPEN SORES? NO . ALLERGIC/IMMUNO: ARE YOU ALLERGIC TO SHELLFISH OR IV DYE? NO . ANY NEW ALLERGIES? NO . PSYCHIATRIC: DO YOU HAVE THOUGHTS OF HURTING YOURSELF OR SOMEONE ELSE? NO . ARE YOU ABUSED, NEGLECTED, OR IN AN UNSAFE ENVIRONMENT? NO . ENDOCRINOLOGY: ARE YOU DIABETIC? NO . OTHER: DO YOU NEED ANY PRESCRIPTIONS? NO . IF YES, PLEASE LIST: ____ . ANY NEW PROBLEMS WITH YOUR MEDICATIONS? NO . WHEN DID YOU LAST EAT? ____ . WHEN DID YOU LAST DRINK? ____ . WHAT DID YOU LAST DRINK? ____ . NAME OF PERSON DRIVING YOU HOME? ____ . DO YOU HAVE ANY OTHER QUESTIONS OR CONCERNS YES, BROUGHT IN BLOODWORK FROM [facility] . UROLOGY: GENERAL SELF CATHS - NO DIFFICULTY . VITAL SIGNS WT 142.6 LBS, HT 66", BMI 23.01 INDEX, BP 114/85 MM HG, RR 71 /MIN, TEMP 974 F, OXYGEN SAT % 96%, NA INITIALS TL 0928, REVIEWED BY: CHRISTINE. EXAMINATION GENERAL EXAMINATION: PSYCHALERT , ORIENTED X 3 , APPROPRIATE MOOD AND AFFECT . LUNGS:CLEAR TO AUSCULTATION BILATERALLY. HEART:HEART RATE REGULAR, NO MURMURS, CLICK OR RUBS. MUSCULOSKELETAL:TENDER OVER SACRUM AND COCCYX AND LEFT PIRIFORMIS. ABLE TO BE SEATED TODAY.R. POSTURE STIFF. TRIGGER POINTS AND TIGHT FIBROUS BANDS IDENTIFIED OVER CERVICAL PARASPINOUS MUSCLES AND ACROSS BILATERAL TRAPEZIUS. GAIT NONANTALGIC.. 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 WALK EVERY DAY. PROCEDURE CODES FA211 ESTABILISHED PATIENT [facility] CHARGE DISPOSITION & COMMUNICATION FOLLOW UP 3-4 MONTHS (REASON: BACK PAIN) ELECTRONICALLY SIGNED BY GADIEL JIMENEZ ON 02/08/2017 AT 08:24 PM EST DISCLAIMER : THIS IS A VISIT SUMMARY EXTRACTED FROM THE [employer] CHART. IT IS NOT A COPY OF THE [employer] PROGRESS NOTE. CLARISSAD
== END ==
LOC: M PAIN 09:15
PROVIDERS: ATTEND Nurse Practitioner Family
DX: G57.00 Lesion of sciatic nerve, unspecified lower limb (principal); M51.26 Other intervertebral disc displacement, lumbar region; M79.1 Myalgia; N31.9 Neuromuscular dysfunction of bladder, unspecified; Z79.891 Long term (current) use of opiate analgesic; Z79.899 Other long term (current) drug therapy; Z88.0 Allergy status to penicillin; Z88.1 Allergy status to other antibiotic agents; Z91.040 Latex allergy status

== ENCOUNTER 2017-02-28 10:28 | Emergency (ER) | payer OTHER ==
[~2017-02-28] VITALS: Ht 170.2 cm; Wt 63.2 kg
--- NOTE | 2017-02-28 11:28 | REP ---
CT of the cervical spine: Axial images are acquired helical scanning and a reformatted sagittal and coronal projections. The skull base, C1 and C2 are unremarkable. Vertebral body heights, interspacing alignment are normal. The prevertebral soft tissues are normal. The facets are normally aligned. There are no posterior element fractures. Impression: There is no fracture or listhesis. Signed by Garrett Mendez MD 02/28/2017 11:20 A
--- NOTE | 2017-02-28 12:02 | REP ---
PA and lateral chest: There are no comparisons. The lung rivera are clear. The cardiac size is normal The stacy, mediastinum, and bony thorax are unremarkable. Impression: Negative PA and lateral chest. Signed by Garrett Mendez MD 02/28/2017 11:54 A
[2017-02-28] MEDS ORDERED: IBUP-1114 PO (12:33)
[2017-02-28 12:45] VITALS: BP 106/65
[2017-02-28] MEDS ORDERED: IBUPROFEN 600 MG TAB PO ONE (12:45)
--- NOTE | 2017-02-28 19:36 | ECGEPIP ---
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
== END 2017-02-28 12:47 | disposition home or self-care (01) ==
LOC: M ED 10:28 → EDBD 10:28 → M ED 12:47
DX: S16.1XXA Strain of muscle, fascia and tendon at neck level, initial encounter (principal); S29.012A Strain of muscle and tendon of back wall of thorax, initial encounter; S20.219A Contusion of unspecified front wall of thorax, initial encounter; V49.49XA Driver injured in collision with other motor vehicles in traffic accident, initial encounter; Y92.410 Unspecified street and highway as the place of occurrence of the external cause; Y93.89 Activity, other specified; Y99.8 Other external cause status; N31.9 Neuromuscular dysfunction of bladder, unspecified; M26.609 Unspecified temporomandibular joint disorder, unspecified side; Z96.0 Presence of urogenital implants; F43.10 Post-traumatic stress disorder, unspecified; M35.00 Sjogren syndrome, unspecified; Z79.899 Other long term (current) drug therapy; Z88.0 Allergy status to penicillin; Z88.1 Allergy status to other antibiotic agents; Z91.040 Latex allergy status; F17.210 Nicotine dependence, cigarettes, uncomplicated

== ENCOUNTER → 2017-04-02 | Outpatient (CLI) | payer OTHER | LOC: M PAIN 10:00 | DX: G89.29 Other chronic pain (principal); G57.00 Lesion of sciatic nerve, unspecified lower limb; M79.1 Myalgia; M51.26 Other intervertebral disc displacement, lumbar region; G47.30 Sleep apnea, unspecified; I73.00 Raynaud's syndrome without gangrene; M35.00 Sjogren syndrome, unspecified; F43.10 Post-traumatic stress disorder, unspecified; N31.9 Neuromuscular dysfunction of bladder, unspecified; Z88.0 Allergy status to penicillin; Z88.1 Allergy status to other antibiotic agents; Z79.899 Other long term (current) drug therapy; Z87.820 Personal history of traumatic brain injury; Z91.040 Latex allergy status; Z79.891 Long term (current) use of opiate analgesic | CPT/HCPCS: G0463 ==

== ENCOUNTER → 2017-04-23 | Outpatient (CLI) | payer OTHER | LOC: M PAIN 15:00 | DX: S13.4XXA Sprain of ligaments of cervical spine, initial encounter (principal); M79.1 Myalgia; R07.89 Other chest pain; M26.609 Unspecified temporomandibular joint disorder, unspecified side; G89.29 Other chronic pain; V44.0XXA Car driver injured in collision with heavy transport vehicle or bus in nontraffic accident, initial encounter; G47.00 Insomnia, unspecified; M35.00 Sjogren syndrome, unspecified; M19.90 Unspecified osteoarthritis, unspecified site; Z87.820 Personal history of traumatic brain injury; G56.00 Carpal tunnel syndrome, unspecified upper limb; I73.00 Raynaud's syndrome without gangrene; N31.9 Neuromuscular dysfunction of bladder, unspecified; Z79.891 Long term (current) use of opiate analgesic; Z79.899 Other long term (current) drug therapy; Z91.040 Latex allergy status; Z88.0 Allergy status to penicillin; Z88.1 Allergy status to other antibiotic agents | CPT/HCPCS: G0463 ==

== ENCOUNTER → 2017-05-15 | Outpatient (REF) | payer OTHER ==
[2017-05-15 12:22] LABS: APPEARANCE, URINE HAZY (CLEAR); BACTERIA, URINE AUTO 1+ (NEGATIVE); BILIRUBIN, URINE AUTO NEGATIVE (NEGATIVE); BLOOD, URINE BLOOD NEGATIVE (NEGATIVE); COLOR, URINE YELLOW (YELLOW); GLUCOSE, URINE (UA) AUTO NEGATIVE (NEGATIVE); KETONE, URINE AUTO NEGATIVE (NEGATIVE); LEUKOCYTE ESTERASE, URINE AUTO TRACE (NEGATIVE); MUCUS, URINE SMALL (NEGATIVE); NITRITE, URINE AUTO NEGATIVE (NEGATIVE); PROTEIN, URINE AUTO NEGATIVE (NEGATIVE); RBC, URINE AUTO 2 /HPF (0-3); SPECIFIC GRAVITY URINE AUTO 1.018 (1.002-1.035); SQUAMOUS EPITHELIAL CELL UR AU 0 /HPF (0-6); UROBILINOGEN, URINE AUTO 0.2 mg/dL (0.0-2.0); WBC, URINE AUTO 20 /HPF (0-3)
== END ==
LOC: M SFHCPLAZ 11:55
DX: R30.0 Dysuria (principal)

== ENCOUNTER → 2017-05-15 | Outpatient (CLI) | payer OTHER ==
[~2017-05-15] MED LIST changes: -/CELE20CA OR; -/CELE20CA PO; -/QUET25TA OR; +BUPIVACAINE HCL 0.25% 10 ML VIAL As Ordered; +BUPIVACAINE HCL 0.25% 30 ML VIAL As Ordered; -CALCCHW12 PO; -CALCTAB22 PO; -COLA100C5 PO; -CRANCAP11 PO; -GLUC500T3 PO; -MIRA3350 PO; -MOBI15TA PO; -MYRB50TA PO; -NEUR100C OR; -NIFE30TA7 PO; -PLAQ200T PO; -PREG100CA PO; -PROZ10CA7 PO; -TERB250T64 PO; -TRAM50TA2 OR; -TRAZ50TA OR; -TRAZ50TA11 PO; -VITAD1000T PO; -[UNRECOGNIZED DRUG - REMARK]; -combination cream TOP; -melatonin PO; -tylenol arthritis PO
== END ==
LOC: M PAIN 12:30
DX: G89.29 Other chronic pain (principal); M79.1 Myalgia; G47.30 Sleep apnea, unspecified; F43.10 Post-traumatic stress disorder, unspecified; E78.5 Hyperlipidemia, unspecified; M35.00 Sjogren syndrome, unspecified; M19.90 Unspecified osteoarthritis, unspecified site; N31.9 Neuromuscular dysfunction of bladder, unspecified; Z87.891 Personal history of nicotine dependence; Z79.891 Long term (current) use of opiate analgesic; Z87.820 Personal history of traumatic brain injury; Z79.899 Other long term (current) drug therapy; Z91.040 Latex allergy status; Z88.0 Allergy status to penicillin; Z88.1 Allergy status to other antibiotic agents
CPT/HCPCS: 20553

== ENCOUNTER → 2017-05-19 | Outpatient (CLI) | payer OTHER ==
[2017-05-19 09:23] LABS: BASO # 0.1 10^3/uL (0.0-0.2); BASO % 0.9 % (0.0-1.0); EOS # 0.2 10^3/uL (0.0-0.50); EOS % 2.8 % (0.0-3.0); HEMATOCRIT 39.8 % (36.0-47.0); HEMOGLOBIN 13.3 g/dl (12.0-16.0); IMMATURE GRANULOCYTE % 0.5 % (0-3.0); LYMPH # 1.7 10^3/uL (1.5-4.5); LYMPH % 29.1 % (24.0-44.0); MEAN CORPUSCULAR HEMOGLOBIN 30.4 pg (27.0-33.0); MEAN CORPUSCULAR HGB CONC 33.4 g/dl (32.0-36.5); MEAN CORPUSCULAR VOLUME 91.1 fl (80.0-96.0); MONO # 0.4 10^3/uL (0.0-0.8); MONO % 6.7 % (0.0-5.0); NEUTROPHILS # 3.4 10^3/uL (1.8-7.7); PLATELET COUNT, AUTOMATED 244 10^3/uL (150-450); RED BLOOD COUNT 4.37 10^6/uL (4.00-5.40); RED CELL DISTRIBUTION WIDTH 11.9 % (11.5-14.5); WHITE BLOOD COUNT 5.7 10^3/uL (4.0-10.0)
[2017-05-19 09:58] LABS: ALBUMIN 3.8 GM/DL (3.2-5.2); ALBUMIN/GLOBULIN RATIO 1.41 (1.00-1.93); ALKALINE PHOSPHATASE 83 U/L (45-117); ALT/SGPT 24 U/L (12-78); ANION GAP 5 MEQ/L (8-16); AST/SGOT 18 U/L (7-37); BILIRUBIN,TOTAL 0.2 MG/DL (0.2-1.0); BLOOD UREA NITROGEN 19 MG/DL (7-18); CALCIUM LEVEL 8.6 MG/DL (8.5-10.1); CARBON DIOXIDE LEVEL 32 MEQ/L (21-32); CHLORIDE LEVEL 104 MEQ/L (98-107); CREATININE FOR GFR 0.63 MG/DL (0.55-1.30); GLOMERULAR FILTRATION RATE > 60.0 (>51); GLUCOSE, FASTING 82 MG/DL (70-100); POTASSIUM SERUM 4.5 MEQ/L (3.5-5.1); RHEUMATOID FACTOR QUANT < 10.0 IU/ML (0-15.0); SODIUM LEVEL 141 MEQ/L (136-145); TOTAL PROTEIN 6.5 GM/DL (6.4-8.2)
[2017-05-19 10:00] LABS: ERYTHROCYTE SEDIMENTATION RATE 5 mm/hr (0-30)
[2017-05-21 00:10] LABS: CYCLIC CITRULLINATED PEPTIDE 4 units (0-19)
[2017-05-21 00:10] LABS: ANTINUCLEAR ANTIBODIES DIRECT Negative (Negative)
== END ==
LOC: M LAB 08:27
DX: M35.9 Systemic involvement of connective tissue, unspecified (principal)

== ENCOUNTER → 2017-05-19 | Outpatient (CLI) | payer OTHER ==
[2017-05-19 09:24] LABS: BASO # 0.1 10^3/uL (0.0-0.2); EOS # 0.1 10^3/uL (0.0-0.50); EOS % 2.4 % (0.0-3.0); HEMATOCRIT 40.3 % (36.0-47.0); HEMOGLOBIN 13.5 g/dl (12.0-16.0); IMMATURE GRANULOCYTE % 0.5 % (0-3.0); LYMPH # 1.7 10^3/uL (1.5-4.5); LYMPH % 28.7 % (24.0-44.0); MEAN CORPUSCULAR HGB CONC 33.5 g/dl (32.0-36.5); MEAN CORPUSCULAR VOLUME 92.4 fl (80.0-96.0); MONO # 0.4 10^3/uL (0.0-0.8); MONO % 7.3 % (0.0-5.0); NEUTROPHILS # 3.6 10^3/uL (1.8-7.7); NEUTROPHILS % 60.1 % (36.0-66.0); PLATELET COUNT, AUTOMATED 230 10^3/uL (150-450); RED BLOOD COUNT 4.36 10^6/uL (4.00-5.40); RED CELL DISTRIBUTION WIDTH 11.9 % (11.5-14.5); WHITE BLOOD COUNT 5.9 10^3/uL (4.0-10.0)
[2017-05-19 10:00] LABS: ALBUMIN 3.7 GM/DL (3.2-5.2); ALBUMIN/GLOBULIN RATIO 1.28 (1.00-1.93); ALKALINE PHOSPHATASE 86 U/L (45-117); ALT/SGPT 23 U/L (12-78); ANION GAP 5 MEQ/L (8-16); AST/SGOT 18 U/L (7-37); BILIRUBIN,TOTAL 0.3 MG/DL (0.2-1.0); BLOOD UREA NITROGEN 19 MG/DL (7-18); CALCIUM LEVEL 8.5 MG/DL (8.5-10.1); CARBON DIOXIDE LEVEL 31 MEQ/L (21-32); CHLORIDE LEVEL 105 MEQ/L (98-107); CHOLESTEROL LEVEL 162 MG/DL (<200); CHOLESTEROL RISK RATIO 1.928 (<5); CREATININE FOR GFR 0.64 MG/DL (0.55-1.30); FREE T4 0.85 NG/DL (0.76-1.46); GLOMERULAR FILTRATION RATE > 60.0 (>51); GLUCOSE, FASTING 80 MG/DL (70-100); HDL CHOLESTEROL 84 MG/DL (>40); LDL CHOLESTEROL 68.6 MG/DL (<100); NON-HDL-C 78 MG/DL; POTASSIUM SERUM 4.4 MEQ/L (3.5-5.1); SODIUM LEVEL 141 MEQ/L (136-145); TOTAL PROTEIN 6.6 GM/DL (6.4-8.2); TRIGLYCERIDES LEVEL 47 MG/DL (<150)
[2017-05-19 10:12] LABS: TOTAL 25(OH) VITAMIN D 23.3 NG/ML (30.0-100.0)
[2017-05-19 10:13] LABS: FOLATE 13.9 NG/ML; VITAMIN B12 LEVEL 847 PG/ML
== END ==
LOC: M LAB 08:23
DX: M35.00 Sjogren syndrome, unspecified (principal); E78.5 Hyperlipidemia, unspecified; E53.8 Deficiency of other specified B group vitamins; F43.10 Post-traumatic stress disorder, unspecified; M85.80 Other specified disorders of bone density and structure, unspecified site
CPT/HCPCS: 82746

== ENCOUNTER → 2017-05-21 | Outpatient (CLI) | payer OTHER | LOC: M PAIN 15:00 | DX: S13.4XXA Sprain of ligaments of cervical spine, initial encounter (principal); M79.1 Myalgia; R07.89 Other chest pain; M26.609 Unspecified temporomandibular joint disorder, unspecified side; E78.5 Hyperlipidemia, unspecified; F43.10 Post-traumatic stress disorder, unspecified; N31.9 Neuromuscular dysfunction of bladder, unspecified; Z79.891 Long term (current) use of opiate analgesic; Z79.899 Other long term (current) drug therapy; Z91.040 Latex allergy status; Z88.0 Allergy status to penicillin; Y92.89 Other specified places as the place of occurrence of the external cause; Y93.89 Activity, other specified; X58.XXXA Exposure to other specified factors, initial encounter; Y99.8 Other external cause status | CPT/HCPCS: G0463 ==

== ENCOUNTER → 2017-06-04 | Outpatient (REF) | payer OTHER ==
[2017-06-04 14:02] LABS: APPEARANCE, URINE CLEAR (CLEAR); BACTERIA, URINE AUTO NEGATIVE (NEGATIVE); BILIRUBIN, URINE AUTO NEGATIVE (NEGATIVE); BLOOD, URINE BLOOD NEGATIVE (NEGATIVE); COLOR, URINE YELLOW (YELLOW); GLUCOSE, URINE (UA) AUTO NEGATIVE (NEGATIVE); KETONE, URINE AUTO NEGATIVE (NEGATIVE); LEUKOCYTE ESTERASE, URINE AUTO NEGATIVE (NEGATIVE); MUCUS, URINE SMALL (NEGATIVE); NITRITE, URINE AUTO NEGATIVE (NEGATIVE); PROTEIN, URINE AUTO NEGATIVE (NEGATIVE); RBC, URINE AUTO 0 /HPF (0-3); SQUAMOUS EPITHELIAL CELL UR AU 0 /HPF (0-6); UROBILINOGEN, URINE AUTO 0.2 mg/dL (0.0-2.0); WBC, URINE AUTO 1 /HPF (0-3)
== END ==
LOC: M SMT 12:56
DX: N31.9 Neuromuscular dysfunction of bladder, unspecified (principal)

== ENCOUNTER → 2017-07-01 | Outpatient (CLI) | payer OTHER | LOC: M PAIN 09:00 | DX: S13.4XXD Sprain of ligaments of cervical spine, subsequent encounter (principal); M79.1 Myalgia; R07.89 Other chest pain; M26.609 Unspecified temporomandibular joint disorder, unspecified side; G89.29 Other chronic pain; G47.30 Sleep apnea, unspecified; M35.00 Sjogren syndrome, unspecified; F43.10 Post-traumatic stress disorder, unspecified; I73.00 Raynaud's syndrome without gangrene; E78.5 Hyperlipidemia, unspecified; Z79.899 Other long term (current) drug therapy; Z88.0 Allergy status to penicillin; Z88.1 Allergy status to other antibiotic agents; Z91.040 Latex allergy status; Z87.891 Personal history of nicotine dependence | CPT/HCPCS: G0463 ==

== ENCOUNTER → 2017-07-01 | Outpatient (CLI) | payer OTHER | LOC: M PAIN 08:45 | DX: G57.00 Lesion of sciatic nerve, unspecified lower limb (principal); M51.26 Other intervertebral disc displacement, lumbar region; M70.62 Trochanteric bursitis, left hip; G89.29 Other chronic pain; G47.30 Sleep apnea, unspecified; M35.00 Sjogren syndrome, unspecified; F43.10 Post-traumatic stress disorder, unspecified; I73.00 Raynaud's syndrome without gangrene; D18.09 Hemangioma of other sites; E78.5 Hyperlipidemia, unspecified; Z79.891 Long term (current) use of opiate analgesic; Z79.899 Other long term (current) drug therapy; Z88.0 Allergy status to penicillin; Z88.1 Allergy status to other antibiotic agents; Z91.040 Latex allergy status; Z87.820 Personal history of traumatic brain injury; Z87.891 Personal history of nicotine dependence | CPT/HCPCS: G0463 ==

== ENCOUNTER → 2017-07-22 | Outpatient (CLI) | payer OTHER ==
[~2017-07-22] MED LIST changes: -BUPIVACAINE HCL 0.25% 10 ML VIAL As Ordered; +ISOVUE-M 300 61% 15ML VIAL (Q9967) As Ordered; +LIDOCAINE 1% SDV INJ 30 ML VIAL As Ordered; +TRIAMCINOLONE ACETONIDE SUSP 40 MG/ML VIAL (J3301) As Ordered
== END ==
LOC: M PAIN 08:45
DX: G89.29 Other chronic pain (principal); M70.62 Trochanteric bursitis, left hip; G47.30 Sleep apnea, unspecified; M35.00 Sjogren syndrome, unspecified; M19.90 Unspecified osteoarthritis, unspecified site; F43.10 Post-traumatic stress disorder, unspecified; I73.00 Raynaud's syndrome without gangrene; E78.5 Hyperlipidemia, unspecified; Z79.891 Long term (current) use of opiate analgesic; Z79.899 Other long term (current) drug therapy; Z88.0 Allergy status to penicillin; Z88.1 Allergy status to other antibiotic agents; Z91.040 Latex allergy status; Z87.820 Personal history of traumatic brain injury; Z87.891 Personal history of nicotine dependence
CPT/HCPCS: J3301

== ENCOUNTER → 2017-09-01 | Outpatient (CLI) | payer OTHER | LOC: M PAIN 09:15 | DX: G57.00 Lesion of sciatic nerve, unspecified lower limb (principal); M79.1 Myalgia; M70.62 Trochanteric bursitis, left hip; E78.5 Hyperlipidemia, unspecified; N31.9 Neuromuscular dysfunction of bladder, unspecified; F43.10 Post-traumatic stress disorder, unspecified; Z79.891 Long term (current) use of opiate analgesic; Z79.899 Other long term (current) drug therapy; Z91.040 Latex allergy status; Z88.0 Allergy status to penicillin; Z87.891 Personal history of nicotine dependence | CPT/HCPCS: G0463 ==

== ENCOUNTER → 2017-11-02 | Outpatient (CLI) | payer OTHER | LOC: M PAIN 08:45 | DX: G57.00 Lesion of sciatic nerve, unspecified lower limb (principal); M79.1 Myalgia; M70.62 Trochanteric bursitis, left hip; G47.30 Sleep apnea, unspecified; M35.00 Sjogren syndrome, unspecified; M19.90 Unspecified osteoarthritis, unspecified site; F43.10 Post-traumatic stress disorder, unspecified; I73.00 Raynaud's syndrome without gangrene; E78.5 Hyperlipidemia, unspecified; Z79.891 Long term (current) use of opiate analgesic; Z79.899 Other long term (current) drug therapy; Z88.0 Allergy status to penicillin; Z88.1 Allergy status to other antibiotic agents; Z91.040 Latex allergy status; Z87.820 Personal history of traumatic brain injury; Z87.891 Personal history of nicotine dependence | CPT/HCPCS: G0463 ==

== ENCOUNTER → 2017-11-12 | Outpatient (REF) | payer OTHER ==
[2017-11-12 18:53] LABS: APPEARANCE, URINE HAZY (CLEAR); BACTERIA, URINE AUTO 1+ (NEGATIVE); BILIRUBIN, URINE AUTO NEGATIVE (NEGATIVE); BLOOD, URINE BLOOD NEGATIVE (NEGATIVE); COLOR, URINE YELLOW (YELLOW); GLUCOSE, URINE (UA) AUTO NEGATIVE (NEGATIVE); KETONE, URINE AUTO TRACE mg/dL (NEGATIVE); LEUKOCYTE ESTERASE, URINE AUTO 3+ (NEGATIVE); MUCUS, URINE MODERATE (NEGATIVE); NITRITE, URINE AUTO NEGATIVE (NEGATIVE); PROTEIN, URINE AUTO 1+ mg/dL (NEGATIVE); RBC, URINE AUTO 4 /HPF (0-3); SPECIFIC GRAVITY URINE AUTO 1.026 (1.002-1.035); SQUAMOUS EPITHELIAL CELL UR AU 1 /HPF (0-6); UROBILINOGEN, URINE AUTO 0.2 mg/dL (0.0-2.0); WBC, URINE AUTO 76 /HPF (0-3)
== END ==
LOC: M SMT 17:24
DX: R30.0 Dysuria (principal)
CPT/HCPCS: 81001

== ENCOUNTER → 2017-11-30 | Outpatient (CLI) | payer OTHER ==
[2017-11-30 14:11] LABS: BASO % 0.7 % (0.0-1.0); EOS # 0.1 10^3/uL (0.0-0.50); EOS % 2.4 % (0.0-3.0); HEMATOCRIT 36.8 % (36.0-47.0); HEMOGLOBIN 12.3 g/dl (12.0-15.5); IMMATURE GRANULOCYTE % 0.3 % (0-3.0); LYMPH # 2.1 10^3/uL (1.5-4.5); LYMPH % 37.1 % (24.0-44.0); MEAN CORPUSCULAR HEMOGLOBIN 31.6 pg (27.0-33.0); MEAN CORPUSCULAR HGB CONC 33.4 g/dl (32.0-36.5); MEAN CORPUSCULAR VOLUME 94.6 fl (80.0-96.0); MONO # 0.5 10^3/uL (0.0-0.8); NEUTROPHILS # 2.9 10^3/uL (1.8-7.7); NEUTROPHILS % 50.5 % (36.0-66.0); PLATELET COUNT, AUTOMATED 231 10^3/uL (150-450); RED BLOOD COUNT 3.89 10^6/uL (4.00-5.40); WHITE BLOOD COUNT 5.8 10^3/uL (4.0-10.0)
[2017-11-30 14:50] LABS: ERYTHROCYTE SEDIMENTATION RATE 3 mm/hr (0-30)
[2017-11-30 20:38] LABS: ALBUMIN 3.5 GM/DL (3.2-5.2); ALKALINE PHOSPHATASE 69 U/L (45-117); ALT/SGPT 44 U/L (12-78); ANION GAP 8 MEQ/L (8-16); AST/SGOT 33 U/L (7-37); BILIRUBIN,TOTAL 0.3 MG/DL (0.2-1.0); BLOOD UREA NITROGEN 8 MG/DL (7-18); C REACTIVE PROTEIN QUANTITATIV < 0.30 MG/DL (0.00-0.30); CALCIUM LEVEL 8.4 MG/DL (8.5-10.1); CARBON DIOXIDE LEVEL 29 MEQ/L (21-32); CHLORIDE LEVEL 106 MEQ/L (98-107); GLOMERULAR FILTRATION RATE > 60.0 (>51); GLUCOSE, FASTING 76 MG/DL (70-100); SODIUM LEVEL 143 MEQ/L (136-145)
== END ==
LOC: M LAB 13:47
DX: M35.9 Systemic involvement of connective tissue, unspecified (principal)
CPT/HCPCS: 72202

== ENCOUNTER → 2017-12-28 | Outpatient (CLI) | payer OTHER | LOC: M PAIN 08:45 | DX: G57.00 Lesion of sciatic nerve, unspecified lower limb (principal); M79.18 Myalgia, other site; M70.62 Trochanteric bursitis, left hip; M35.00 Sjogren syndrome, unspecified; M19.90 Unspecified osteoarthritis, unspecified site; F43.10 Post-traumatic stress disorder, unspecified; I73.00 Raynaud's syndrome without gangrene; E78.5 Hyperlipidemia, unspecified; G47.00 Insomnia, unspecified; Z79.899 Other long term (current) drug therapy; Z88.0 Allergy status to penicillin; Z88.1 Allergy status to other antibiotic agents; Z91.040 Latex allergy status; Z87.820 Personal history of traumatic brain injury | CPT/HCPCS: G0463 ==

== ENCOUNTER 2018-01-29 17:21 | Emergency (ER) | payer OTHER ==
[2018-01-29 18:17] LABS: BASO % 0.6 % (0.0-1.0); EOS # 0.2 10^3/uL (0.0-0.50); EOS % 2.4 % (0.0-3.0); HEMATOCRIT 38.6 % (36.0-47.0); HEMOGLOBIN 12.8 g/dl (12.0-15.5); IMMATURE GRANULOCYTE % 0.3 % (0-3.0); LYMPH # 2.4 10^3/uL (1.5-4.5); LYMPH % 35.8 % (24.0-44.0); MEAN CORPUSCULAR HGB CONC 33.2 g/dl (32.0-36.5); MEAN CORPUSCULAR VOLUME 93.5 fl (80.0-96.0); MONO # 0.6 10^3/uL (0.0-0.8); MONO % 8.3 % (0.0-5.0); NEUTROPHILS # 3.5 10^3/uL (1.8-7.7); NEUTROPHILS % 52.6 % (36.0-66.0); PLATELET COUNT, AUTOMATED 236 10^3/uL (150-450); RED BLOOD COUNT 4.13 10^6/uL (4.00-5.40); RED CELL DISTRIBUTION WIDTH 11.9 % (11.5-14.5); WHITE BLOOD COUNT 6.6 10^3/uL (4.0-10.0)
[2018-01-29 18:50] LABS: ERYTHROCYTE SEDIMENTATION RATE 5 mm/hr (0-30)
[2018-01-29 18:53] LABS: ANION GAP 7 MEQ/L (8-16); BLOOD UREA NITROGEN 11 MG/DL (7-18); C REACTIVE PROTEIN QUANTITATIV < 0.30 MG/DL (0.00-0.30); CALCIUM LEVEL 8.9 MG/DL (8.5-10.1); CARBON DIOXIDE LEVEL 32 MEQ/L (21-32); CHLORIDE LEVEL 105 MEQ/L (98-107); CREATININE FOR GFR 0.78 MG/DL (0.55-1.30); GLOMERULAR FILTRATION RATE > 60.0 (>51); GLUCOSE, FASTING 77 MG/DL (70-100); POTASSIUM SERUM 3.8 MEQ/L (3.5-5.1); SODIUM LEVEL 144 MEQ/L (136-145)
[2018-01-29 19:02] LABS: INR 0.98; PARTIAL THROMBOPLASTIN TIME 30.8 SECONDS (25.4-37.6); PROTHROMBIN TIME 13.1 SECONDS (12.1-14.4)
[2018-01-29] MEDS ORDERED: PROHANCE 279.3MG/ML 15ML VIAL (A9576) As Ordered ×2 (19:27)
[2018-01-29] MEDS: NS 1,000 ML IV ×2 (22:00)
[2018-01-29] MEDS: levETIRAcetam INJection 1,000 MG in D5W 100 ML IV (22:00)
[2018-01-29] MEDS: dexameTHASONE 20 MG/5 ML VIAL (J1100) IV ×2 (22:01)
== END 2018-01-29 22:48 | disposition short-term general hospital (02) ==
LOC: M ED 17:21
DX: D32.0 Benign neoplasm of cerebral meninges (principal); G93.6 Cerebral edema; R41.82 Altered mental status, unspecified; R41.3 Other amnesia; E78.5 Hyperlipidemia, unspecified; F43.10 Post-traumatic stress disorder, unspecified; G47.33 Obstructive sleep apnea (adult) (pediatric); G89.4 Chronic pain syndrome; M35.00 Sjogren syndrome, unspecified; Z79.899 Other long term (current) drug therapy; Z88.0 Allergy status to penicillin; Z88.1 Allergy status to other antibiotic agents; Z91.040 Latex allergy status
CPT/HCPCS: J1100

== ENCOUNTER 2018-02-10 00:27 | Emergency (ER) | payer OTHER ==
[2018-02-10 01:03] LABS: BASO % 0.4 % (0.0-1.0); EOS # 0.1 10^3/uL (0.0-0.50); EOS % 1.3 % (0.0-3.0); HEMATOCRIT 39.1 % (36.0-47.0); HEMOGLOBIN 13.6 g/dl (12.0-15.5); IMMATURE GRANULOCYTE % 1.4 % (0-3.0); LYMPH # 2.6 10^3/uL (1.5-4.5); LYMPH % 28.6 % (24.0-44.0); MEAN CORPUSCULAR HEMOGLOBIN 31.6 pg (27.0-33.0); MEAN CORPUSCULAR HGB CONC 34.8 g/dl (32.0-36.5); MEAN CORPUSCULAR VOLUME 90.9 fl (80.0-96.0); MONO # 0.8 10^3/uL (0.0-0.8); MONO % 8.2 % (0.0-5.0); NEUTROPHILS # 5.5 10^3/uL (1.8-7.7); NEUTROPHILS % 60.1 % (36.0-66.0); PLATELET COUNT, AUTOMATED 250 10^3/uL (150-450); RED CELL DISTRIBUTION WIDTH 12.1 % (11.5-14.5); WHITE BLOOD COUNT 9.1 10^3/uL (4.0-10.0)
[2018-02-10 01:24] LABS: ALBUMIN 3.3 GM/DL (3.2-5.2); ALBUMIN/GLOBULIN RATIO 1.27 (1.00-1.93); ALKALINE PHOSPHATASE 71 U/L (45-117); ALT/SGPT 40 U/L (12-78); ANION GAP 8 MEQ/L (8-16); AST/SGOT 18 U/L (7-37); BILIRUBIN,DIRECT < 0.1 MG/DL (0.0-0.2); BILIRUBIN,TOTAL 0.3 MG/DL (0.2-1.0); BLOOD UREA NITROGEN 16 MG/DL (7-18); CARBON DIOXIDE LEVEL 28 MEQ/L (21-32); CHLORIDE LEVEL 102 MEQ/L (98-107); CK-MB VALUE MASS < 1.0 NG/ML (<3.6); CPK CREATINE PHOSPHOKINASE 31 U/L (26-192); CREATININE FOR GFR 0.82 MG/DL (0.55-1.30); GLOMERULAR FILTRATION RATE > 60.0 (>51); GLUCOSE, FASTING 97 MG/DL (70-100); MB/CK RELATIVE INDEX 3.23 (< OR =4); POTASSIUM SERUM 3.4 MEQ/L (3.5-5.1); SODIUM LEVEL 138 MEQ/L (136-145); TOTAL PROTEIN 5.9 GM/DL (6.4-8.2); TROPONIN I < 0.02 NG/ML (< 0.10)
[2018-02-10] MEDS: dexameTHASONE 20 MG/5 ML VIAL (J1100) IV (01:43)
[2018-02-10] MEDS: FUROSEMIDE 100 MG/10 ML VIAL (J1940) IV (03:41)
== END 2018-02-10 03:50 | disposition home or self-care (01) ==
LOC: M ED 00:27
DX: G97.82 Other postprocedural complications and disorders of nervous system (principal); G93.9 Disorder of brain, unspecified; R11.0 Nausea; M35.00 Sjogren syndrome, unspecified; M54.9 Dorsalgia, unspecified; M19.90 Unspecified osteoarthritis, unspecified site; Z87.891 Personal history of nicotine dependence; Z88.0 Allergy status to penicillin; Z88.1 Allergy status to other antibiotic agents; Z91.040 Latex allergy status; Z79.899 Other long term (current) drug therapy
CPT/HCPCS: J1100